=== PATIENT | male | born 1955 | race Asian ===

== ENCOUNTER → 2016-06-28 | Outpatient (CLI) | payer OTHER ==
[~2016-06-28] VITALS: Ht 175.3 cm; Wt 77.5 kg
[~2016-06-28] MED LIST: ASPI1TAB69 PO; DEXTROSE 5% IN WATE 1000ML INJ 1,000 ML IV SCH; DIPH1TAB36 PO; INSULIN HUMAN REGULAR 1,000 UNITS/10 ML VIAL SQ PRN; LACTATED RINGER'S 1000 ML IV SCH; LISI-363 PO; LISI-515 PO; METF-324 PO; METF-382 PO; METOPROLOL TARTRATE 25 MG TAB PO PRN; MULT-6 PO; PERC5TAB12 PO; PROPOFOL 200 MG/20 ML AMP IV ONE; RIVA10 PO; SODIUM CHLORID 0.9% 500 ML IV SCH; TAB-TAB PO; Z.0.CPM
[2016-06-28 13:47] VITALS: BP 142/81; PULSE 80; RESP 18; TEMP 98.8; O2SAT 100
[2016-06-28 15:30] VITALS: TEMP 98.2
[2016-06-28 15:50] VITALS: BP 136/83; PULSE 77; RESP 18; O2SAT 99
--- NOTE | 2016-06-29 16:47 | EKG ---
Date Performed: 06/28/2016 Time Performed: 13:55:40 PTAGE: 60 years EKG: Sinus rhythm Slight J point elevation compatible with early repolarization. When compared to previous tracing, no significant change. BORDERLINE ECG PREVIOUS TRACING : 01/24/2014 09.16 DOCTOR: Junaid Sorenson Interpretating Date/Time 06/29/2016 16:45:23
--- NOTE | 2016-07-03 06:34 | MR ---
cc: KELTON MAKI M.D. DATE OF PROCEDURE 06/28/2016 PREOPERATIVE DIAGNOSIS Screening colonoscopy. POSTOPERATIVE DIAGNOSIS Normal colonoscopy. PROCEDURE Total colonoscopy. ANESTHESIA Monitored anesthesia care. SURGEON Dr. Maki OPERATIVE FINDINGS This patient is due for his 10-year screening colonoscopy. At colonoscopy he was found have no polyps or other mucosal lesions. OPERATIVE TECHNIQUE The patient was placed on the table in left lateral position, given intravenous monitored anesthesia care and the colonoscope was introduced through the anal canal to the rectum, sigmoid colon, descending colon, transverse colon, ascending colon to the cecum. The ileocecal valve was seen as well as the base of the appendix. The scope was sequentially withdrawn, sequentially looking at the mucosa, getting a good look at the mucosa. The prep was good. The scope was eventually withdrawn. The patient tolerated the procedure well and left the GI lab in good condition. He sure repeat colonoscopy in 10 years' time. MD NATALIE Sloan/JOHANNY /4:06 PM /6:29 AM
== END ==
LOC: HEND 12:54
PROVIDERS: ATTEND Colon & Rectal Surgery
DX: Z12.11 Encounter for screening for malignant neoplasm of colon (principal); I10 Essential (primary) hypertension; E11.9 Type 2 diabetes mellitus without complications; F17.210 Nicotine dependence, cigarettes, uncomplicated
CPT/HCPCS: 93005

== ENCOUNTER → 2016-09-05 | Outpatient (CLI) | payer OTHER ==
[~2016-09-05] MED LIST changes: -DEXTROSE 5% IN WATE 1000ML INJ 1,000 ML IV SCH; -INSULIN HUMAN REGULAR 1,000 UNITS/10 ML VIAL SQ PRN; -LACTATED RINGER'S 1000 ML IV SCH; -LISI-363 PO; -METF-324 PO; -METOPROLOL TARTRATE 25 MG TAB PO PRN; -PERC5TAB12 PO; -PROPOFOL 200 MG/20 ML AMP IV ONE; -RIVA10 PO; -SODIUM CHLORID 0.9% 500 ML IV SCH; -TAB-TAB PO; -Z.0.CPM
[2016-09-05 09:17] LABS: BACTERIA, URINE RARE /hpf; BLOOD, URINE NEG (NEG); GLUCOSE,URINE TRACE mg/dL (NEG); HYALINE CAST, URINE 1 /lpf (RARE); KETONE, URINE NEG (NEG); MUCUS URINE FEW /lpf (OCC); NITRITE,URINE NEG (NEG); PH, URINE 5.5 (5.0-8.5); URINE COLOR YELLOW (YELLW/STRAW)
[2016-09-05 09:30] LABS: HEMATOCRIT 45.8 % (39.0-51.0); MEAN CELL VOLUME 88.1 FL (80.0-100.0); MEAN CORPUSCULAR HEMOGLOBIN 29.7 PG (27.0-34.0); MEAN CORPUSCULAR HGB CONC 33.7 % (32.0-36.0); PLATELET COUNT 286 TH/MM3 (150-450); RED BLOOD COUNT 5.19 MIL/MM3 (4.50-5.90); RED CELL DISTRIBUTION WIDTH 13.6 % (11.6-17.2); REVIEW FLAG FINAL; WHITE BLOOD COUNT 9.8 TH/MM3 (4.0-11.0)
[2016-09-05 10:20] LABS: ALKALINE PHOSPHATASE 79 U/L (45-117); ALT (GPT) 45 U/L (12-78); ANION GAP 8 MEQ/L (5-15); AST (GOT) 25 U/L (15-37); BICARBONATE 29.2 MEQ/L (21.0-32.0); BLOOD UREA NITROGEN 14 MG/DL (7-18); CHLORIDE 99 MEQ/L (98-107); FREE T4 0.92 NG/DL (0.76-1.46); GLOMERULAR FILTRATION RATE 65 ML/MIN (>89); GLUCOSE,FASTING 189 MG/DL (74-99); HDL CHOLESTEROL 35.6 MG/DL (40.0-60.0); POTASSIUM 4.5 MEQ/L (3.5-5.1); SODIUM (NA) 136 MEQ/L (136-145); TOTAL BILIRUBIN ADULT 0.5 MG/DL (0.2-1.0)
[2016-09-05 10:51] LABS: MICRO ALBUMIN RANDOM URINE RAW 41.4 MG/L (0.0-30.0)
== END ==
LOC: CLAB 08:48
PROVIDERS: ATTEND Family Medicine Adolescent Medicine
DX: E78.4 Other hyperlipidemia (principal); E11.29 Type 2 diabetes mellitus with other diabetic kidney complication; N41.9 Inflammatory disease of prostate, unspecified; Z79.899 Other long term (current) drug therapy; Z72.89 Other problems related to lifestyle
CPT/HCPCS: 36415; 80053; 80061; 81001; 82043; 84153; 84439; 84443; 85027; 86803

== ENCOUNTER → 2016-10-03 | Outpatient (CLI) | payer OTHER ==
[2016-10-03 09:10] LABS: HDL CHOLESTEROL 39.8 MG/DL (40.0-60.0)
== END ==
LOC: CLAB 08:04
PROVIDERS: ATTEND Internal Medicine Interventional Cardiology
DX: E78.5 Hyperlipidemia, unspecified (principal); E11.9 Type 2 diabetes mellitus without complications
CPT/HCPCS: 36415; 80061; 84450; 84460

== ENCOUNTER → 2016-11-15 | Outpatient (CLI) | payer OTHER ==
[2016-11-15 14:32] LABS: BICARBONATE 26.3 MEQ/L (21.0-32.0); POTASSIUM 4.1 MEQ/L (3.5-5.1)
== END ==
LOC: CLAB 13:41
PROVIDERS: ATTEND Specialist
DX: I65.22 Occlusion and stenosis of left carotid artery (principal); R13.10 Dysphagia, unspecified; R42 Dizziness and giddiness; H81.49 Vertigo of central origin, unspecified ear
CPT/HCPCS: 36415; 80048

== ENCOUNTER → 2017-08-20 | Outpatient (CLI) | payer OTHER ==
[2017-08-20 08:14] LABS: AUTOMATED NEUTROPHIL # 5.3 TH/MM3 (1.8-7.7); BASOPHIL # 0.1 TH/MM3 (0-0.2); BASOPHIL % 1.1 % (0.0-2.0); EOSINOPHIL # 0.3 TH/MM3 (0-0.4); EOSINOPHIL % 3.3 % (0.0-4.0); HEMATOCRIT 46.7 % (39.0-51.0); HEMOGLOBIN 15.3 GM/DL (13.0-17.0); LYMPH % 31.9 % (9.0-44.0); MEAN CELL VOLUME 88.1 FL (80.0-100.0); MEAN CORPUSCULAR HGB CONC 32.9 % (32.0-36.0); MEAN PLATELET VOLUME 8.6 FL (7.0-11.0); MONO % 6.7 % (0.0-8.0); MONOCYTE # 0.6 TH/MM3 (0-0.9); PLATELET COUNT 314 TH/MM3 (150-450); RED CELL DISTRIBUTION WIDTH 14.1 % (11.6-17.2); WHITE BLOOD COUNT 9.3 TH/MM3 (4.0-11.0)
[2017-08-20 08:44] LABS: CHOLESTEROL/ HDL RATIO 3.34 RATIO; FREE T4 0.97 NG/DL (0.76-1.46); HDL CHOLESTEROL 40.9 MG/DL (40.0-60.0)
[2017-08-20 08:44] LABS: BILIRUBIN, URINE NEG (NEG); BLOOD, URINE NEG (NEG); GLUCOSE,URINE 1000 mg/dL (NEG); HYALINE CAST, URINE 2 /lpf (RARE); KETONE, URINE NEG (NEG); NITRITE,URINE NEG (NEG); URINE COLOR YELLOW (YELLW/STRAW); URINE LEUKOCYTE ESTERASE NEG (NEG)
== END ==
LOC: CLAB 07:49
PROVIDERS: ATTEND Family Medicine Adolescent Medicine
DX: I12.9 Hypertensive chronic kidney disease with stage 1 through stage 4 chronic kidney disease, or unspecified chronic kidney disease (principal); E11.22 Type 2 diabetes mellitus with diabetic chronic kidney disease; N18.3 Chronic kidney disease, stage 3 (moderate); E78.4 Other hyperlipidemia; N41.9 Inflammatory disease of prostate, unspecified; Z79.899 Other long term (current) drug therapy
CPT/HCPCS: 36415; 80061; 81001; 82043; 84153; 84439; 84443; 85025